=== PATIENT | male | born 1965 | race Caucasian/White ===

== ENCOUNTER 2020-04-18 10:58 | Outpatient (REF) | payer BC, SELFPAY | END 2020-04-18 10:59 | disposition home or self-care (01) | LOC: HO.LAB 10:58 | PROVIDERS: PCP Internal Medicine; Visit Provider Internal Medicine | DX: Z20.828 Contact with and (suspected) exposure to other viral communicable diseases (principal) | CPT/HCPCS: 87635 ==

== ENCOUNTER 2023-02-15 09:00 | Outpatient (REF) | payer BC, OTHER, SELFPAY ==
[2023-02-15 09:16] LABS: MANUAL DIFF FLAG NO
[2023-02-15 10:06] LABS: Basophils Absolute Auto 0.1 X10*3/uL (0.0-0.2); Basophils Percent Auto 1.3 % (0-2); Eosinophils Absolute Auto 0.1 X10*3/uL (0.0-0.4); Eosinophils Percent Auto 1.2 % (0-4); Hematocrit 41.7 % (42.0-52.0); Hemoglobin 14.1 g/dl (14.0-18.0); Imm Gran Abs Auto 0.03 X10*3/uL (0.00-0.03); Imm Gran Pct Auto 0.4 % (0.0-0.4); Lymphocytes Absolute Auto 1.5 X10*3/uL (1.2-4.9); Lymphocytes Percent Auto 22.3 % (20-40); Mean Corpuscular HGB Conc 33.8 g/dl (31.0-36.0); Mean Corpuscular Hemoglobin 31.8 pg (27.0-33.0); Mean Corpuscular Volume 94.1 fL (80.0-98.0); Mean Platelet Volume 9.4 fL (9.4-12.4); Monocytes Absolute Auto 0.6 X10*3/uL (0.1-1.2); Monocytes Percent Auto 8.4 % (2-11); Neutrophils Absolute Auto 4.5 x10*3/uL (2.0-8.3); Neutrophils Percent Auto 66.4 % (45-73); Platelet Count 465 X10*3/uL (160-400); Red Blood Count 4.43 X10*6/uL (4.60-5.80); Red Cell Distribution Width 12.3 % (11.0-16.0); White Blood Count 6.8 X10*3/uL (4.8-10.8)
[2023-02-15 10:22] LABS: Appearance Urine Clear; Color Urine Yellow; Glucose Urine UA Negative (Negative); Leukocyte Esterase Urine Negative (Negative); Nitrite Urine Negative (Negative); Urine Blood Negative (Negative); Urine Ketones Negative (Negative); Urine Protein Negative (Neg-Trace)
[2023-02-15 10:57] LABS: Alanine Aminotransferase 28 U/L (0-40); Albumin Level 4.1 g/dL (3.5-5.0); Alkaline Phosphatase 59 U/L (39-117); Anion Gap 11 (12-20); Aspartate Amino Transferase 22 U/L (5-37); Bilirubin Total 0.5 mg/dL (0.0-1.0); Blood Urea Nitrogen 15 mg/dL (9-16); Calcium 9.8 mg/dL (8.4-10.2); Carbon Dioxide 27 mmol/L (22-29); Chloride 105 mmol/L (96-108); Cholesterol 205 mg/dL (<200); Estimated Glomerular Filt Rate > 60; Glucose Fasting 104 mg/dL (60-99); HDL Cholesterol 59 mg/dL (>40); LDL Cholesterol Calculated 137 mg/dL (<100); Potassium 4.3 mmol/L (3.3-5.1); Sodium 139 mmol/L (135-145); Total Protein 6.7 g/dL (6.5-8.0); Triglycerides 49 mg/dL (<150)
[2023-02-15 11:17] LABS: Prostate Specific Antigen 1.05 ng/mL (<0.05-4.0)
== END 2023-02-15 09:01 | disposition home or self-care (01) ==
LOC: HO.LAB 09:00
PROVIDERS: PCP Internal Medicine; Visit Provider Internal Medicine
DX: K57.90 Diverticulosis of intestine, part unspecified, without perforation or abscess without bleeding (principal); M54.9 Dorsalgia, unspecified; Z12.5 Encounter for screening for malignant neoplasm of prostate
CPT/HCPCS: 36415; 80053; 80061; 81003; 84153; 85025

== ENCOUNTER 2024-03-13 15:19 | Outpatient (REF) | payer BC, SELFPAY ==
[2024-03-13 15:34] LABS: MANUAL DIFF FLAG NO
[2024-03-13 15:40] LABS: Basophils Absolute Auto 0.1 X10*3/uL (0.0-0.2); Basophils Percent Auto 1.2 % (0-2); Eosinophils Absolute Auto 0.1 X10*3/uL (0.0-0.4); Eosinophils Percent Auto 1.8 % (0-4); Hematocrit 42.6 % (42.0-52.0); Hemoglobin 14.6 g/dl (14.0-18.0); Imm Gran Abs Auto 0.03 X10*3/uL (0.00-0.03); Imm Gran Pct Auto 0.4 % (0.0-0.4); Lymphocytes Absolute Auto 2.2 X10*3/uL (1.2-4.9); Mean Corpuscular HGB Conc 34.3 g/dl (31.0-36.0); Mean Corpuscular Hemoglobin 31.5 pg (27.0-33.0); Mean Corpuscular Volume 91.8 fL (80.0-98.0); Mean Platelet Volume 8.7 fL (9.4-12.4); Monocytes Absolute Auto 0.9 X10*3/uL (0.1-1.2); Monocytes Percent Auto 11.9 % (2-11); Neutrophils Absolute Auto 4.1 x10*3/uL (2.0-8.3); Neutrophils Percent Auto 55.7 % (45-73); Platelet Count 431 X10*3/uL (160-400); Red Blood Count 4.64 X10*6/uL (4.60-5.80); Red Cell Distribution Width 12.1 % (11.0-16.0); White Blood Count 7.4 X10*3/uL (4.8-10.8)
[2024-03-13 16:07] LABS: Alanine Aminotransferase 25 U/L (0-40); Albumin Level 4.3 g/dL (3.5-5.0); Alkaline Phosphatase 62 U/L (39-117); Anion Gap 10 (12-20); Aspartate Amino Transferase 19 U/L (5-37); Bilirubin Total 0.7 mg/dL (0.0-1.0); Blood Urea Nitrogen 28 mg/dL (9-16); Calcium 9.8 mg/dL (8.4-10.2); Carbon Dioxide 27 mmol/L (22-29); Chloride 109 mmol/L (96-108); Cholesterol 188 mg/dL (<200); Estimated Glomerular Filt Rate > 60; Glucose Random 101 mg/dL (60-115); HDL Cholesterol 62 mg/dL (>40); LDL Cholesterol Calculated 117 mg/dL (<100); Potassium 4.4 mmol/L (3.3-5.1); Sodium 142 mmol/L (135-145); Triglycerides 49 mg/dL (<150)
[2024-03-13 16:30] LABS: Prostate Specific Antigen Scr 1.55 ng/mL (<0.05-4.0)
== END 2024-03-13 15:20 | disposition home or self-care (01) ==
LOC: HO.LAB 15:19
PROVIDERS: PCP Internal Medicine; Visit Provider Internal Medicine
DX: Z00.00 Encounter for general adult medical examination without abnormal findings (principal); Z12.5 Encounter for screening for malignant neoplasm of prostate; Z87.39 Personal history of other diseases of the musculoskeletal system and connective tissue
CPT/HCPCS: 36415; 80053; 80061; 84153; 85025

== ENCOUNTER 2025-03-11 08:52 | Outpatient (AMB) | payer BC, SELFPAY ==
--- NOTE | 2025-03-11 09:03 | MHC.PC.OV ---
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 Required: No Accompanied by: Self / Same As Patient Allergies No Known Allergies (No Known Allergies*) Allergy (Verified 03/11/25 09:03) Medication List - Last Reconciled 03/11/25 by Armen Heart MD No Known Home Meds Tobacco use date assessed: 03/11/25 Dental Screening Dental Screen Date: 03/11/25 Did you have a dental visit in the last 12 months?: Yes Did you have a dental problem in the last 6 months where you did not have access to dental care?: No Was dental information given to patient?: Patient has dentist HPI HPI Comments History of Present Illness Details The patient is a 59-year-old male presenting with lower back pain and a request for a wellness check-up primarily concerned with cancer screening protocols given his extensive family history of various cancers. The patient described a history of lower back pain not attributed to muscular issues. He reported that the onset of his back pain occurred approximately three years ago, coinciding with an increased alcohol intake of about three times a week after his divorce. During this period, he socialized frequently with friends, and he associated the back pain with dehydration or possible electrolyte disturbances from beer consumption. The patient noticed an improvement in his symptoms when he reduced his alcohol intake to approximately four beers a month, stating that exacerbations occurred only when consuming more than his typical amount, such as during vacations. The patient has a past episode of rectal bleeding which led to a diagnosis of a vessel issue possibly related to hemorrhoids, but no surgical intervention was required. He reported having had three colonoscopies in the past, the last being in 2019, all of which showed that he was in good health. He adheres to a carnivore, keto-based diet and is skeptical about the necessity of fiber. Medical History: - History of knee injury requiring surgery - History of bilateral wrist fractures - Episode of rectal bleeding diagnosed as a hemorrhoid - Multiple colonoscopies with no significant findings Surgical History: - Knee surgery (Date unspecified) Medications: - Ibuprofen as needed, approximately three times a year Family History: - Mother from lung cancer at 56 years - Father with blood cancer, exacerbated by COVID-19 - Brother with a history of skin cancer - Sister with history of breast cancer - No reported family history of hypertension or diabetes Diagnostic Results: - Colonoscopy (most recent in 2019) with normal findings Social: - , current stable relationship - Reduced alcohol consumption: approximately four beers per month - No history of smoking or substance use - Engages in a carnivore keto-based diet - Active lifestyle including walking [facility] Medical History (Updated 03/11/25 @ 09:34 by Armen Heart MD) Family history of malignant neoplasm of other organs or systems Establishing care with new doctor, encounter for Surgical History (Updated 03/10/25 @ 16:01 by Alley Archibald) History of colonoscopy (~10/13/18) Social History Housing: Other Housing Other:: [facility] Patient Tobacco Use Status: Never used Tobacco e-Cigarette/Vaping Use: Never Used service: No Current occupational status: employed 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 1. Little interest or pleasure in doing things: not at all 2. Feeling down, depressed, or hopeless: not at all 3. Trouble falling or staying asleep, or sleeping too much: not at all 4. Feeling tired or having little energy: not at all 5. Poor appetite or overeating: not at all 6. Feeling bad about yourself - or that you are a failure or have let yourself or your family down: not at all 7. Trouble concentrating on things, such as reading the newspaper or watching television: not at all 8. Moving or speaking so slowly that other people could have noticed. Or the opposite - being so fidgety or restless that you have been moving around a lot more than usual: not at all 9. Thoughts that you would be better off or of hurting yourself in some way: not at all Total score: 0 Depression Screening Interpretation: Negative Depression Screening Done: Yes 59125 - PHQ-9 Billing: Yes Source: Developed by Drs. Santiago Wheeler, Alena Kohli, Channing Gaston and colleagues, with an educational cally from [employer]. Thrive Questionnaire Date Thrive assessed: 03/11/25 I am a: Patient What is your living situation today?: I have a steady place to live Within the past 12 months, did the food you bought not last and you didn't have the money to get more?: Never true Within the past 12 months, did you worry whether your food would run out before you got money to buy more?: Never true Do you have trouble paying for medicines?: No Do you have trouble getting transportation to medical appointments?: No Do you have trouble paying your heating and electricity bill?: No Do you have trouble taking care of your child, family member or friend?: No Do you have trouble with day-to-day activities such as bathing, preparing meals, shopping, managing finances, etc.?: No Are you currently unemployed and looking for a job?: No Are you interested in more education?: No THRIVE Score: 0 AUDIT C Alcohol Use Questionnaire (AUDIT-C) 1. How often do you have a drink containing alcohol?: 2-4 times a month 2. How many drinks containing alcohol do you have on a typical day when you are drinking?: 1 or 2 Total Score: 2 Score Reviewed/Action Taken: Yes ROGE-7 AMB Questionnaire ROGE-7 Date ROGE - 7 assessed: 03/11/25 Feeling nervous, anxious, or on edge: 0 = Not at all Not being able to stop or control worryin = Not at all Worrying too much about different things: 0 = Not at all Trouble relaxin = Not at all Being so restless that it is hard to sit still: 0 = Not at all Becoming easily annoyed or irritable: 0 = Not at all Feeling afraid as if something awful might happen: 0 = Not at all Total ROGE-7 score (0-4 normal; 5-9 mild; 10-14 moderate; 15-21 severe): 0 Source: Developed by Drs. Santiago Wheeler, Alena Kohli, Channing Gaston and colleagues, with an educational cally from [employer]. ROGE-7 Assessment Billing ROGE-7 Assessment Tool: ROGE-7 Assessment 44127 Review of Systems Const Details: - Musculoskeletal: Reports lower back pain - Gastrointestinal: Reports past rectal bleeding; denies current issues - Skin: Reports history of skin lesions; consult with dermatology recommended - Respiratory: Denies symptoms - Neurological: Denies symptoms - Cardiovascular: Denies symptoms All systems reviewed & are unremarkable except as reviewed in HPI and above Physical exam (Primary Care) Vital Signs: Last Vital Signs Temp 97.7 F 03/11/25 09:08 Pulse 87 03/11/25 09:08 Resp 18 03/11/25 09:08 BP 118/68 03/11/25 09:08 Pulse Ox 97 03/11/25 09:08 Oxygen Delivery Method Room Air 03/11/25 09:08 BMI result Body Mass Index 30.1 Tobacco/Smoking Status: Tobacco use Status Tobacco use date assessed 03/11/25 03/11/25 09:11 Patient Tobacco Use Status Never used Tobacco 03/11/25 09:11 e-Cigarette/Vaping Use Never Used 03/11/25 09:11 Depression Screening Interpretation: Negative Const Other: - Musculoskeletal: Reports lower back pain - Gastrointestinal: Reports past rectal bleeding; denies current issues - Skin: Reports history of skin lesions; consult with dermatology recommended - Respiratory: Denies symptoms - Neurological: Denies symptoms - Cardiovascular: Denies symptoms All systems reviewed & are unremarkable except as reviewed in HPI and above Coding Level of Care Code New Pt Level 3 (22839) New Pt Prev Care 40-64y(06039) Diagnoses Establishing care with new doctor, encounter for Z76.89 Family history of malignant neoplasm of other organs or systems Z80.8 Additional Codes PHQ-9 - 64300 - PHQ-9 Billing: Yes ([id number]) ROGE-7 Assessment Billing - ROGE-7 Assessment Tool: ROGE-7 Assessment 76584 ([id number]) Assessment & Plan Assessment & Plan (1) Establishing care with new doctor, encounter for: Comment: - Obtain Baseline Labs Code(s): Z76.89 - Persons encountering health services in other specified circumstances Category: Medical (2) Family history of malignant neoplasm of other organs or systems: Comment: - Given family history of melanoma, and multiple skin lesions will refer to dermatology to establish care for closer monitoring Code(s): Z80.8 - Family history of malignant neoplasm of other organs or systems Category: Medical Plan: Health Maintenance: - Continue with periodic colonoscopy screenings as per standard guidelines - Suggest dermatology consultation for skin lesion assessment given family history - Encourage routine blood work to monitor cholesterol, glucose, and potential hepatitis and syphilis exposure - Reinforce the benefits of dietary management and regular physical activity Plan Today's visit included a comprehensive review of the patient?s musculoskeletal issues and preventive care measures given his family history of cancer. We discussed the nature of lower back pain related to alcohol consumption and dehydration. I recommended dietary modifications and maintaining adequate hydration levels. Based on the patient's family history, colonoscopy, and dermatology consultations were suggested. Screening blood tests for cholesterol, diabetes, hepatitis panel, and syphilis were planned to address potential concerns and continue with preventative health care. Orders: Orders Complete Blood Count Auto Diff Today Z76.89 - Persons encountering health services in other specified circumstances Syphilis Screen Today Z76.89 - Persons encountering health services in other specified circumstances Comprehensive Met. Panel Today Z76.89 - Persons encountering health services in other specified circumstances Hemoglobin A1c Today Z76.89 - Persons encountering health services in other specified circumstances Hepatitis A,B,C Profile Today Z76.89 - Persons encountering health services in other specified circumstances HIV Ab/Ag Today Z76.89 - Persons encountering health services in other specified circumstances Lipid Panel Today Z76.89 - Persons encountering health services in other specified circumstances TSH reflex Free T4 Today Z76.89 - Persons encountering health services in other specified circumstances Vitamin D 25-OH Total Today Z76.89 - Persons encountering health services in other specified circumstances Referrals Dermatology Referral Z80.8 - Family history of malignant neoplasm of other organs or systems Cologuard Test Z12.11 - Encounter for screening for malignant neoplasm of colon Patient Instructions: - Maintain adequate hydration, especially if consuming alcohol - Limit alcohol intake to prevent exacerbation of back pain - Adhere to lifestyle changes and monitor any new or worsening skin lesions - Schedule and attend recommended screening tests for cholesterol and other conditions - Follow up with a gas singer for skin examination due to family history - Continue with healthy dietary habits and regular physical activity
[2025-03-11 09:08] VITALS: BP 118/68; PULSE 87; RESP 18; TEMP 36.5; O2SAT 97; BMI 30.1
--- OUTSIDE RECORDS SUMMARY | 2025-03-11 10:09 | XMS_ITS ---
Author Name [facility] Organization Unknown Care Team Organization Name Specialty Phone Email Start Date End Da te Office of the Signal System Testing Maintainer ([facility]) 05/08/2024
--- OUTSIDE RECORDS SUMMARY | 2025-03-11 10:09 | XMS_ITS | Clinical Summary ---
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 Name Role Phone Unavailable Primary Care Provider Unavailabl e Social History Tobacco Use Types Packs/Day Years Used Date Smoking Tobacco: Never Assessed Sex and Gender Information Value Date Recorded Sex Assigned at Not on file Legal Sex Male 2:44 PM EDT Gender Identity Not on file Sexual Orientation Not on file Plan of Treatment Health Maintenance Due Date Last Done Comments HIV screening 1977 Hepatitis C screening 1982 Tetanus adult (Td q 10,TDAP once) 1984 Lipid disorder screening 2004 Colon cancer screening, Colonoscopy 2009 Diabetes screening 2009 Pneumococcal Vaccine (50+ ye ars) (1 of 1 - PCV) 2014 Shingles vaccine (Shingrix) (1 of 2 - Shingrix (RZV) 2 Dose Standard Series) 2014 Covid-19 vaccine series (1 - 2023- season) 2025 Influenza vaccine 02/22/2025 RSV Immunization (1 - 1-dose 75+ series) 08/24/2039 Meningococcal B Vaccine Aged Out No l onger eligible based on patient's age to complete this topic Meningococcal Vaccine Aged Out No channing casa eligible based on patient's age to complete this topic
--- OUTSIDE RECORDS SUMMARY | 2025-03-11 10:10 | XMS_ITS | Patient Health Record ---
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 Yes How often did you have a dri nk containing alcohol in the past year? Monthly or less (1 point) How many drinks did you have on a typical day when you were drinking in the past year? 1 or 2 drinks (0 point) Points 1 Interpretation Negative Section Notes: Nonsmoker; no sig alcohol Problems Problem Type SNOMED Code ICD Code Onset Dates Problem Status W/U Status Risk Notes Problem [id number] Encounter for screening for malignant neoplasm of colon (Z12.11) Active confirmed Problem [id number] Rectal bleed (K62.5) Active confirmed Plan Of Treatment Future Test Test Name Order Date COLONOSCOPY 08/12/2018 Insurance Providers Payer Name Payer Address Payer Phone Subscriber Number Group Number Insured Name Patient Relationship to Insured Coverage Start Date Coverage End Date [facility] [id number] [place] [address] [id number] PENNY SANTOS Self - patient is the insured Medical (General) History Medical History History ICD Code Denies IN,DM,CVA,Lung disease,renal dise ase Colonoscopy 11/2003 for evalu ation of bleeding--internal hemorrhoids, hyperplastic polyp Surgical History Surgery Date(Month/Year) Left knee 1982 Vasectomy
== END 2025-03-11 09:35 | disposition home or self-care (01) ==
PROVIDERS: PCP Student in an Organized Health Care Education/Training Program; Visit Provider Student in an Organized Health Care Education/Training Program
DX: Z00.00 Encounter for general adult medical examination without abnormal findings (principal); Z80.8 Family history of malignant neoplasm of other organs or systems

== ENCOUNTER 2025-03-11 08:52 | Outpatient (REF) | payer BC, SELFPAY ==
[2025-03-11 10:12] LABS: MANUAL DIFF FLAG NO
[2025-03-11 10:24] LABS: Hematocrit 39.1 % (42.0-52.0); Hemoglobin 13.6 g/dl (14.0-18.0); Imm Gran Abs Auto 0.02 X10*3/uL (0.00-0.03); Imm Gran Pct Auto 0.3 % (0.0-0.4); Lymphocytes Absolute Auto 2.3 X10*3/uL (1.2-4.9); Mean Corpuscular HGB Conc 34.8 g/dl (31.0-36.0); Mean Corpuscular Hemoglobin 31.9 pg (27.0-33.0); Mean Corpuscular Volume 91.8 fL (80.0-98.0); NRBC Abs Auto 0.000 X10*3/uL (0.0-0.012); NRBC Pct Auto 0.0 /100WBC (0.0-0.2); Platelet Count 409 X10*3/uL (160-400); Red Blood Count 4.26 X10*6/uL (4.60-5.80); White Blood Count 7.3 X10*3/uL (4.8-10.8)
[2025-03-11 11:15] LABS: Hemoglobin A1C 134.5593 umol/L
[2025-03-11 11:32] LABS: Alanine Aminotransferase 30 U/L (0-40); Albumin Level 4.4 g/dL (3.5-5.0); Alkaline Phosphatase 66 U/L (39-117); Anion Gap 10 (12-20); Aspartate Amino Transferase 27 U/L (5-37); Blood Urea Nitrogen 25 mg/dL (9-16); Calcium 9.2 mg/dL (8.4-10.2); Carbon Dioxide 27 mmol/L (22-29); Chloride 110 mmol/L (96-108); Cholesterol 193 mg/dL (<200); Estimated Glomerular Filt Rate > 60; HDL Cholesterol 61 mg/dL (>40); Potassium 4.8 mmol/L (3.3-5.1); Sodium 142 mmol/L (135-145); Syphilis Screen Nonreactive (Nonreactive); Total Protein 6.6 g/dL (6.5-8.0); Triglycerides 47 mg/dL (<150)
[2025-03-11 11:40] LABS: HBS Num1 0.00 mIU/mL (0-7.99); HBc Num1 0.04 S/CO (0.00-0.79); HBsAGNum1 0.55 S/CO (0.00-0.99); HIV Num 1 0.06 S/CO (0.00-0.99); Hepatitis A Antibody IgM 0.22 Index (0-0.79); Hepatitis B Surface Antigen Negative (Negative); ~HepC Num1 0.05 S/CO (0.00-0.79); ~Hepatitis A Antibody IgM Nonreactive (Nonreactive); ~Hepatitis B Surface Antibody NONREACTIVE (Nonreactive); ~Hepatitis C Antibody Nonreactive (Nonreactive)
== END 2025-03-11 08:53 | disposition home or self-care (01) ==
LOC: HO.LAB 08:52
PROVIDERS: PCP Internal Medicine; Visit Provider Student in an Organized Health Care Education/Training Program
DX: Z76.89 Persons encountering health services in other specified circumstances (principal); Z80.8 Family history of malignant neoplasm of other organs or systems
CPT/HCPCS: 36415; 80053; 80061; 82306; 83036; 84443; 85025; 86704; 86706; 86709; 86780; 86803; 87340; 87389; 96127